=== PATIENT | male | born 1990 | race Caucasian/White ===

== ENCOUNTER 2018-07-28 08:26 | Emergency (ER) | payer OTHER, MEDICAID, SELFPAY ==
[2018-07-28 08:39] VITALS: BP 132/78; PULSE 78; RESP 14; TEMP 36.5; O2SAT 100
--- NOTE | 2018-07-28 08:44 | DI.RAD.S_ITS ---
PROCEDURE: XR TOE LT MIN 2V INDICATIONS: dropped plate on 1st toe, swelling / bruising and pain. TECHNIQUE: 3 views of the left toe(s) acquired. COMPARISON: None. FINDINGS: Bones: No fractures or dislocations. No suspicious bony lesions. Soft tissues: No suspicious soft tissue densities. IMPRESSION: Great toe soft tissue swelling. No fracture. Dictated by: Carlos Brice M.D. on 07/28/2018 at 9:12 Approved by: Carlos Brice M.D. on 07/28/2018 at 9:17
[2018-07-28 10:06] VITALS: PULSE 72
--- NOTE | 2018-07-28 10:48 | ED_ITS ---
HPI - Extremity Injury (Lower) General Chief Complaint: Extremity Injury, Lower Stated Complaint: DROPPED PLATE ON TOE,PURPLE Time Seen by Provider: 07/28/18 10:46 Source: patient Mode of arrival: ambulatory Limitations: no limitations History of Present Illness HPI Narrative: This is a 28-year-old male who states that he dropped a dinner plate on his great toe on the left foot 2 days ago. Patient states he has not really looked at it. He was at work today and was quite uncomfortable. He did notice if there was any swelling in the last 2 days, he did not see any immediately after the injury. Patient states uncomfortable to weight bear. There is no numbness or tingling. He denies any other past medical history, no prior surgeries. No allergies to medication Related Data Previous Rx's Medication Instructions Recorded ciprofloxacin HCl [Cipro] 500 mg PO BID #14 tab 11/10/16 tramadol 50 mg PO Q6H PRN #7 tab 07/28/18 Allergies Allergy/AdvReac Type Severity Reaction Status Date / Time No Known Drug Allergies Allergy Verified 07/28/18 08:44 Review of Systems Review of Systems ROS Unobtainable: All systems reviewed & are unremarkable except as noted in HPI and below Musculoskeletal Reports as per HPI, Denies back pain, Denies muscle weakness, Denies numbness and Denies tingling Integumentary/Breasts Reports unusual bruising Neurologic Denies numbness and Denies tingling PFSH Social History Smoking Status: Former smoker Social History Smoking Status: Former smoker Exam Narrative Exam Narrative: GENERAL: Alert and oriented x three, well-nourished, well- appearing male in mild distress HEENT: Head normocephalic EXTREMITIES: Normal range of motion, Patient has subungual hematoma under the nail of the great toe on the left. Nail appears raised somewhat proximally but majority is attached, patient has some swelling and bruising along medial nail edge but consistent with hematoma and does not feel as if the nail is raised under the skin. <2 seconds cap refill, normal sensation, non-tender on pad of toe, tender over nail. No break in the skin noted. Neurovascularly intact/ NEUROLOGICAL: Cranial nerves II through XII grossly intact. Moving all extremities SKIN: Warm, dry, no petechiae, no rashes or lesions. Initial Vital Signs Initial Vital Signs: Vital Signs Temperature 97.7 F 07/28/18 08:39 Pulse Rate 78 07/28/18 08:39 Respiratory Rate 14 07/28/18 08:39 Blood Pressure 132/78 07/28/18 08:39 Pulse Oximetry 100 07/28/18 08:39 Course Orders Ordered: ED Orders 07/28/18 08:44 XR toe LT min 2V Stat Vital Signs - 8 hr 07/28/18 11:47 Pulse Rate 68 Respiratory Rate 16 Blood Pressure 139/78 Pulse Oximetry 99 [facility] - Extremity Injury (Lower) Imaging Data toe xray: Radiologist's impression: [address] [address] XRay Report Signed Patient: Spencer Hubbard HMR#: [id number] : 1990Acct:[id number] Age/Sex: 28 / MDate of Service: 07/28/18 Loc: ED Accession Number: [id number] Procedure: XR toe LT min 2V Ordering Provider: Carolynn Alexander D.O. PROCEDURE: XR TOE LT MIN 2V INDICATIONS: dropped plate on 1st toe, swelling / bruising and pain. TECHNIQUE: 3 views of the left toe(s) acquired. COMPARISON: None. FINDINGS: Bones: No fractures or dislocations. No suspicious bony lesions. Soft tissues: No suspicious soft tissue densities. IMPRESSION: Great toe soft tissue swelling. No fracture. Dictated by: Carlos Brice M.D. on 07/28/2018 at 9:12 Approved by: Carlos Brice M.D. on 07/28/2018 at 9:17 [facility] Narrative Medical decision making narrative: Patient offered electrocautery to drain hematoma although it has been two days and patient may not have complete relief, he politely refuses. Discharge Plan Departure Patient Disposition: Home Clinical Impression: Subungual hematoma Discharge Date/Time: 07/28/18 11:49 Interventions: ED Discharge Assessment Last Done: 07/28/18 11:47 Instructions: DI for Subungual Hematoma Activity Restrictions/Additional Instructions: Follow up with primary care in the next 3-5 days for recheck if not improvement. Continue tylenol up to 1000mg every 8 hours and ibuprofen up to 600mg every 6 hours as needed for symptoms. Take prescribed pain medication as directed, this medication can make you sleepy, do not drive, perform hazardous activities or make any major decisions while taking it. Keep area clean and dry. Elevated affected body part to decrease swelling. OK to use ice pack on the affected body part. Use for 15-20 minutes each time, for 5-6x per day. If you develop worsening pain, numbness, tingling, discoloration of the affected body part, return to the Emergency Department for any new or worsening symptoms. Prescriptions: New tramadol 50 mg tablet 50 mg PO Q6H PRN (Reason: pain) Qty: 7 RF: 0 No Action ciprofloxacin HCl [Cipro] 500 MG tablet 500 mg PO BID Qty: 14 RF: 0
[2018-07-28 11:47] VITALS: BP 139/78; PULSE 68; RESP 16; O2SAT 99
== END 2018-07-28 11:49 | disposition home or self-care (01) ==
PROVIDERS: Emergency Provider Emergency Medicine
DX: S90.212A Contusion of left great toe with damage to nail, initial encounter (principal); W22.8XXA Striking against or struck by other objects, initial encounter
CPT/HCPCS: 73660; 99282; 99283